=== PATIENT | female | born 1975 | race Caucasian/White ===

== ENCOUNTER 2016-11-03 12:00 | Inpatient (IN) | payer OTHER ==
--- NOTE | ~2016-11-03 | HP ---
Unit #: [id number] #: [id number] Patient: TAWNYA SWENSON [id number] [facility] [address] [place] [address] [id number] MR#: [id number] NAME: TAWNYA SWENSON ROOM: P208 Age: 41 Sex: F Admission Date: 11/03/2016 : 1975 Attending Physician: Thierry Chakraborty M.D. Admitting Physician: Thierry Chakraborty M.D. Primary Care Physician: Primary Care Physician No HISTORY AND PHYSICAL HISTORY OF PRESENT ILLNESS Tawnya is a 41 year old admitted to [address] [place] [address] because of her drug use. She snorts heroin. PAST MEDICAL HISTORY Long history of opioid abuse to include snorting heroin. PAST SURGICAL HISTORY Tubal ligation. ALLERGIES No known drug allergies. SOCIAL HISTORY She smokes greater than 1 pack per day. Denies alcohol. Admits to a long history of opioid abuse to include snorting heroin. FAMILY HISTORY Medically noncontributory. REVIEW OF SYSTEMS CONSTITUTIONAL: No fever or chills. HEENT: Denies any sore throat, ear pain or runny nose. CARDIOVASCULAR: Denies chest pain, irregular heart rhythm or palpitations. CHEST: Denies shortness of breath or cough. No hemoptysis. GASTROINTESTINAL: Denies nausea, vomiting, diarrhea or chronic constipation. ENDOCRINE: Denies history of increased thirst or urination. No recent significant weight loss or gain. GENITOURINARY: Denies dysuria, frequency, or hematuria. SKIN: Denies any rashes. HEMATOLOGIC: Denies history of increased bleeding or bruising. MUSCULOSKELETAL: Denies any hot, swollen joints. No generalized muscle pain. NEUROLOGIC: Denies problems with vision or speech. No frequent, severe headaches. No numbness, tingling or weakness in any extremities. Denies loss of bladder or bowel control. CURRENT MEDICATIONS Detox protocol. PHYSICAL EXAMINATION GENERAL: Alert, well-nourished, in no apparent distress. Unit #: [id number] #: [id number] Patient: TAWNYA SWENSON VITAL SIGNS: Blood pressure 110/78, heart rate 80, respirations 16, temperature 98.6. WEIGHT: 138. HEIGHT: 5 feet 6 inches. SKIN: Warm and dry without rash or lesion. HEENT: Normocephalic. TMs not viewed. Oral and nasal passages clear. Conjunctivae clear. PERRLA. EOMs intact. NECK: Supple without lymphadenopathy or thyromegaly. HEART: Regular rate and rhythm without murmur. LUNGS: Clear. ABDOMEN: Soft, nontender. : Not done. EXTREMITIES: No evidence of cyanosis, clubbing or edema. Moves all without focal deficit. NEUROLOGICAL: Grossly within normal limits. Cranial Nerves: II: Visual sosa are intact. III, IV AND : Extraocular movements are intact. Pupils are equal, round and reactive to light. V: Facial sensation is grossly normal. VII: Facial movements and expression are normal. VIII: Auditory acuity grossly intact. IX, X: Uvula is midline. Phonation is normal. XI: Patient shrugs shoulders and turns head normally. XII: Tongue protrudes in the midline. Sensory and Motor Function: Sensory and motor sensation is grossly normal. Motor: moves all extremities well. Coordination: Gait is normal. Deep Tendon Reflexes: Intact. IMPRESSION Psychiatric admission. RECOMMENDATIONS PSYCHIATRIC: Per psychiatrist. MEDICAL: See no contraindications to participate in facility's activities. MEDICAL PROGNOSIS Good. MEDICAL CONDITION Stable. Dictated by... Mary Patricia P.A.-C. for Chu Lopez/marissa TD: 11/03/2016 20:25 JOB #: [id number] Unit #: [id number] #: [id number] Patient: TAWNYA SWENSON HISTORY AND PHYSICAL Page 1 of 1 X Mary Patricia X HISTORY AND PHYSICAL
--- NOTE | ~2016-11-03 | PN ---
Unit #: [id number] #: [id number] Patient: TAWNYA ROSALES [id number] [facility] [address] [place] [address] [id number] I MR#: [id number] NAME: TAWNYA ROSALES ROOM: P208 Age: 41 Sex: F Admission Date: 11/03/2016 : 1975 Attending Physician: Thierry Chakraborty M.D. Admitting Physician: Thierry Chakraborty M.D. Primary Care Physician: Primary Care Physician Julia NEWTON NOTES DATE OF SERVICE 11/06/2016 DISCUSSION Ms. Rosales is a 41-year-old white female with mood disorder and substance abuse who was seen today. Chart was reviewed and case was discussed with the staff. She has been anxious, withdrawn, and rather seclusive to herself. Meanwhile, she has been cooperative with the treatment recommendations and has been taking the medications and tolerating them fairly well with no reported side effects. MENTAL STATUS EXAMINATION Middle-aged white female who is casually dressed with fair personal hygiene, appears to be in no acute distress or discomfort. She was awake and alert with intact orientation. Her mood is anxious with congruent affect. She denies any suicidal or homicidal ideations. Her insight and judgment remain slightly impaired. TREATMENT PLAN 1. We will continue her on her current medications and treatment protocol. We will monitor her response to the medications and make further adjustments as needed. 2. We will continue to follow up. Dictated by... Thierry Chakraborty M.D. IAA/bzg TD: 11/07/2016 07:00 JOB #: [id number] Unit #: [id number] #: [id number] Patient: TAWNYA ROSALES PROGRESS NOTES Page 1 of 1 X Thierry Chakraborty MD X PROGRESS NOTE
--- NOTE | ~2016-11-03 | PN ---
Unit #: [id number] #: [id number] Patient: TAWNYA SWENSON [id number] [facility] [address] [place] [address] [id number] I MR#: [id number] NAME: TAWNYA SWENSON ROOM: P208 Age: 41 Sex: F Admission Date: 11/03/2016 : 1975 Attending Physician: Thierry Chakraborty M.D. Admitting Physician: Thierry Chakraborty M.D. Primary Care Physician: Primary Care Physician Julia NEWTON NOTES DATE November 08, 2016 DISCUSSION Ms. Swenson is a 41-year-old white female, who was seen today and chart was reviewed and the case was discussed with the staff. The patient has been anxious, withdrawn, but has been seclusive to herself. Meanwhile, she has been cooperative with the treatment recommendations and she has been taking the medications and tolerating them fairly well. MENTAL STATUS EXAMINATION Young white female, who was casually dressed with fair personal hygiene and appears to be in no acute distress or discomfort. She was awake and alert on interaction with intact orientation. Her mood was anxious with a congruent affect. The patient denies any suicidal or homicidal ideations. Her insight and judgment remain slightly impaired. TREATMENT PLAN 1. We will continue her on her current treatment protocol, and will monitor her response, and make further adjustments as needed. 2. We will continue to followup. Dictated by... Chu Hendrix/balbina TD: 11/09/2016 11:06 JOB #: [id number] [facility] PROGRESS NOTES Page 1 of 1 X Thierry Chakraborty MD PROGRESS NOTE
--- NOTE | ~2016-11-03 | PN ---
Unit #: [id number] #: [id number] Patient: TAWNYA ROSALES [id number] [facility] [address] [place] [address] [id number] MR#: [id number] NAME: TAWNYA ROSALES ROOM: P208 Age: 41 Sex: F Admission Date: 11/03/2016 : 1975 Attending Physician: Thierry Chakraborty M.D. Admitting Physician: Thierry Chakraborty M.D. Primary Care Physician: Primary Care Physician Julia NEWTON NOTES DATE OF SERVICE 11/04/2016 DISCUSSION Ms. Rosales is a 41-year-old female with mood disorder and cocaine dependence who was seen today. Chart was reviewed and case was discussed with the staff. The patient has been anxious, withdrawn, depressed, and rather seclusive to herself. Meanwhile, she has been cooperative with the treatment recommendations and has been taking the medications and tolerating them fairly well with no reported side effects. MENTAL STATUS EXAMINATION Middle-aged female who is casually dressed with fair personal hygiene, appears to be in no acute distress or discomfort. She was awake and alert on interaction with intact orientation. Her mood is anxious and depressed with congruent affect. She reports having suicidal ideation but denies any homicidal ideation. Her insight and judgment remain slightly impaired. TREATMENT PLAN 1. We will recommend initiating Wellbutrin XL as an antidepressant. We will monitor her response and make further adjustments as needed. 2. We will continue to follow up. Dictated by... Thierry Chakraborty M.D. IAA/bzg TD: 11/05/2016 07:56 JOB #: [id number] Unit #: [id number] #: [id number] Patient: TAWNYA ROSALES PROGRESS NOTES Page 1 of 1 X Thierry Chakraborty MD PROGRESS NOTE
--- NOTE | ~2016-11-03 | PA ---
Unit #: [id number] #: [id number] Patient: TAWNYA ROSALES [id number] [facility] [address] [place] [address] [id number] I MR#: [id number] NAME: TAWNYA ROSALES ROOM: P208 Age: 41 Sex: F Admission Date: 11/03/2016 : 1975 Date of Assessment: Attending Physician: Thierry Chakraborty M.D. Admitting Physician: Thierry Chakraborty M.D. Primary Care Physician: Primary Care Physician No PSYCHIATRIC ASSESSMENT DATE OF SERVICE 11/03/2016. IDENTIFYING DATA Ms. Rosales is a 41-year-old, single, white female who is a resident of [place], [place] and was self-referred to the hospital on a voluntary basis. CHIEF COMPLAINT "I tried to come in yesterday, but they said I was not sick enough." HISTORY OF PRESENT ILLNESS Ms. Rosales is a 41-year-old white female with history of substance abuse and dependence, who was self-referred to the hospital. Upon presentation, she had a COWS score of 18 indicating significant withdrawal from opioids and reports that she is here to get detox from heroin and was assessed yesterday and was referred to the outpatient treatment program, but she declined the referral. She stated she was told that she is not sick enough to come to the inpatient treatment program, but just started having significant withdrawal symptoms and brought herself back to the hospital stating "I'm addicted to heroin. I'm trying to get off it." The patient reports diarrhea, vomiting, watery eyes, runny nose, feeling hot and cold, "everything hurts." The patient reports significant withdrawal symptoms which are consistent with her extensive history of substance abuse and "I feel like I'm snapping at the kids. I want their lives to be better." The patient reports that she has been snorting a gram of heroin on daily basis last year and last use was 2 days ago. "I cannot live like this anymore." She does report increasing depression, anxiety, irritability, feelings of hopelessness and helplessness, and some vague suicidal ideation stating "I just do not want to live like this;" however, she denies any suicide, intent or plan. SUBSTANCE ABUSE HISTORY The patient reports extensive history of substance abuse including experimentation with cocaine, opioids, and amphetamines, and benzodiazepines, though currently opioids, particularly heroin has been her drug of choice as she reports that she has been using a gram of heroin a day via snorting it. PAST PSYCHIATRIC HISTORY The patient denies any previous history of inpatient or outpatient psychiatric treatment. Review of the medical records indicate currently she is not active in any treatment program and is not seeing any Unit #: [id number] #: [id number] Patient: TAWNYA ROSALES psychiatrist. PAST MEDICAL HISTORY No acute or chronic medical illnesses. ALLERGIES No known medication allergies. CURRENT MEDICATIONS None. PERSONAL AND SOCIAL HISTORY A 41-year-old white female who reports that she is single, unemployed, and lives at home with her 2 children and has poor social support system. MENTAL STATUS EXAMINATION Middle-aged white female who was casually dressed with fair personal hygiene, appears to be in no acute distress or discomfort. She was awake and alert on interaction with intact orientation to time, place, and person. Her mood was anxious and depressed with a congruent affect. Her speech was slow and restricted in content. She denies any suicidal or homicidal ideations, and also denies any auditory or visual hallucinations. Her insight and judgment remain slightly impaired. DIAGNOSTIC IMPRESSION Psychiatric: Opioid dependence, moderate and acute withdrawals; opioid-induced mood disorder. Medical: None. Stressors: Moderate psychosocial stressors. TREATMENT PLAN 1. The patient has presented with history of mood disorder and substance abuse, and has been decompensating and will need inpatient hospitalization for safety and stabilization, and detoxification. We will start her on detox protocol. We will closely monitor for any worsening withdrawal symptoms. 2. Supportive therapy was provided to the patient. 3. Safe, structured, and nourishing environment will be provided. ESTIMATED LENGTH OF STAY 5 to 7 days. ABILITY TO HELP SELF Limited. WILLINGNESS TO HELP SELF The patient appears to be willing to help self. STRENGTHS 1. Communicative. 2. Cooperative. PROBLEMS 1. Chronic dysphoric symptoms. 2. Chronic chemical dependency. 3. Poor social support system. DISCHARGE CRITERIA This will be contingent upon the patient's ability to go through detox Unit #: [id number] #: [id number] Patient: TAWNYA ROSALES without having any significant withdrawal symptoms and her ability to stay safe to herself, particularly after discharge from the hospital. Dictated by... Chu Hendrix/vianca TD: 11/04/2016 22:31 JOB #: [id number] PSYCHIATRIC ASSESSMENT Page 1 of 1 X Thierry Chakraborty MD PSYCHIATRIC ASSESSMENT
--- NOTE | ~2016-11-03 | PN ---
Unit #: [id number] #: [id number] Patient: TAWNYA SWENSON [id number] [facility] [address] [place] [address] [id number] MR#: [id number] NAME: TAWNYA SWENSON ROOM: P208 Age: 41 Sex: F Admission Date: 11/03/2016 : 1975 Attending Physician: Thierry Chakraborty M.D. Admitting Physician: Thierry Chakraborty M.D. Primary Care Physician: Primary Care Physician Julia NEWTON NOTES DATE OF SERVICE 11/05/2016 DISCUSSION Ms. Swenson is a 41-year-old white female with substance abuse and mood disorder who was seen today. Chart was reviewed and case was discussed with the staff. She was lying in her bed and was seen to be in acute distress (1) __ unkempt, disheveled, disorganized as she goes through detox and was not able to carry on much conversation. Meanwhile, she has been taking the medications and tolerating them fairly well with no reported side effects. MENTAL STATUS EXAMINATION Middle-aged white female who is casually dressed with fair personal hygiene, appears to be in no acute distress or discomfort. The patient was awake and alert with impaired attention and concentration. Her mood is anxious with a congruent affect. She denies any suicidal or homicidal ideations. Her insight and judgment remain slightly impaired. TREATMENT PLAN 1. We will continue her on her current treatment protocol. We will monitor her response to the medications and make further adjustments as needed. 2. We will continue to follow up. Dictated by... Chu Hendrix/brijesh TD: 11/06/2016 07:17 JOB #: [id number] Unit #: [id number] #: [id number] Patient: TAWNYA SWENSON PROGRESS NOTES Page 1 of 1 X Thierry Chakraborty MD PROGRESS NOTE
--- NOTE | ~2016-11-03 | DS ---
Unit #: [id number] #: [id number] Patient: [facility]A ROSALES [id number] [facility] [address] [place] [address] [id number] I MR#: [id number] NAME: TAWNYA ROSALES ROOM: P208 Age: 41 Sex: F Admission Date: 11/03/2016 : 1975 Discharge Date: Attending Physician: Thierry Chakraborty M.D. Primary Care Physician: Primary Care Physician No DISCHARGE SUMMARY IDENTIFYING DATA Ms. Rosales is a 41-year-old white female, who is a resident of [place], [place], and was self-referred to the hospital on a voluntary basis. DISCHARGE DIAGNOSES Psychiatric: Opioid dependence, moderate and acute withdrawals; opioid-induced mood disorder. Medical: None. Stressors: Mild psychosocial stressors. HISTORY OF PRESENT ILLNESS Please see initial psychiatric evaluation for details. PAST PSYCHIATRIC HISTORY Please see initial psychiatric evaluation for details. PAST MEDICAL HISTORY Please see initial psychiatric evaluation for details. HOSPITAL COURSE The patient was admitted to the adult chemical dependency and psychiatric unit at [facility] and was oriented to the hospital environment. Routine p.r.n. medications were initiated, and she was started on the detox protocol and was closely monitored. She was taking the medications regularly and was tolerating them fairly well and was able to show a decent and therapeutic response and was able to come out of the detox without any complications and was wanting to go home and was willing to continue treatment on an outpatient basis. She was denying any suicidal ideations, intent, or plan and as such, it was decided that she will be discharged home and will continue treatment on an outpatient basis. DISCHARGE MEDICATIONS None. DISCHARGE CONDITION Stable. PROGNOSIS Fair. Dictated by... Thierry Chakraborty M.D. Unit #: [id number] #: [id number] Patient: TAWNYA ROSALES IAA/modl TD: 11/09/2016 07:04 JOB #: [id number] DISCHARGE SUMMARY Page 1 of 1 X Thierry Chakraborty MD X DISCHARGE SUMMARY
[2016-11-04 09:47] LABS: BASOPHIL# 0.2 X10e3 (0-0.3); BASOPHIL% 2.6 % (0-2.5); EOSINOPHIL# 0.3 X10e3 (0-0.7); EOSINOPHIL% 4.8 % (0.0-7.0); HEMATOCRIT 37.9 % (35.0-45.0); HEMOGLOBIN 12.6 gm/dL (12.0-16.0); LYMPHOCYTE% 43.6 % (17.0-45.0); MEAN CELL VOLUME 94.3 FL (83-96); MEAN CORPUSCULAR HEMOGLOBIN 31.4 PG (28-34); MEAN CORPUSCULAR HGB CONC 33.3 g/dL (30-36); MEAN PLATELET VOLUME 8.4 FL (6.5-11.5); MONOCYTE# 0.6 X10e3 (0-1.0); MONOCYTE% 9.1 % (3.0-12.0); NEUTROPHIL# 2.8 X10e3 (1.5-7.1); NEUTROPHIL% 39.9 % (40-75); PLATELET COUNT 364 X10e3 (140-420); RED BLOOD COUNT 4.02 X10e (3.90-5.30); RED CELL DISTRIBUTION WIDTH 13.4 % (11.0-15.5); WHITE BLOOD COUNT 6.9 X10e3 (4.0-10.5)
[2016-11-04 10:02] LABS: DIFF IND NO
[2016-11-04 10:13] LABS: ALBUMIN SERUM 3.3 g/dL (3.5-5.0); BILIRUBIN,TOTAL 1.4 mg/dL (0.2-2.0); CALCIUM SERUM 8.7 mg/dL (8.4-10.2); CREATININE SERUM 0.7 mg/dL (0.6-1.4); GLOM FILT RATE Estimated 108.4 mL/min (>60); POTASSIUM 3.9 mmol/L (3.5-5.1); PROTEIN TOTAL SERUM 5.5 g/dL (6.0-8.3)
[2016-11-04 12:38] LABS: URINE APPEARANCE CLEAR; URINE BILIRUBIN NEG (NEG); URINE BLOOD NEG (NEG); URINE COLOR YELLOW; URINE GLUCOSE NEG (NEG); URINE KETONE NEG (NEG); URINE LEUKOCYTE ESTERASE NEG (NEG); URINE NITRATE NEG (NEG); URINE PH 6.5 (5-8); URINE PROTEIN NEG (NEG); URINE SPECIFIC GRAVITY 1.021 (1.003-1.035)
[2016-11-04 13:00] LABS: AMPHETAMINE NEG (NEG); BARBITURATES NEG (NEG); BENZODIAZEPINES NEG (NEG); COCAINE NEG (NEG); MARIJUANA NEG (NEG); OPIATES POS (NEG); TRICYCLIC ANTIDEPRESSANTS NEG (NEG); U METHADONE NEG (NEG)
== END 2016-11-09 11:20 | disposition home or self-care (01) | DRG 897 ==
LOC: P2S 13:54
PROVIDERS: Psychiatry & Neurology Psychiatry
PROC: HZ2ZZZZ Detoxification Services for Substance Abuse Treatment (ICD-10-PCS; principal; 2016-11-03)
DX: F11.23 Opioid dependence with withdrawal (principal); F11.24 Opioid dependence with opioid-induced mood disorder; F17.210 Nicotine dependence, cigarettes, uncomplicated
CPT/HCPCS: 80053; 80307; 81003; 85025; 86592